=== PATIENT | male | born 1995 | race Caucasian/White ===

== ENCOUNTER 2024-08-01 13:32 | Emergency (ER) | payer OTHER, SELFPAY ==
[2024-08-01 13:33] VITALS: BP 118/70; PULSE 88; RESP 16; TEMP 36.8; O2SAT 100
[2024-08-01 15:25] VITALS: PULSE 83; RESP 16
[2024-08-01] MEDS: IPRATROPIUM 0.5 MG/ALBUTEROL SULFATE 2.5 MG AMPUL.NEB 3 ML INHALATION (15:25)
[2024-08-01] MEDS: LORazepam (*CRX) 1 MG TABLET PO (15:33)
[2024-08-01 16:12] LABS: Basophils Absolute Auto 0.1 K/mm3 (0.0-0.1); Basophils Percent Auto 0.7 % (0.2-1.2); Eosinophils Absolute Auto 0.1 K/mm3 (0-0.3); Hematocrit 44.8 % (42.0-52.0); Hemoglobin 15.5 g/dL (14.0-18.0); Immature Granulocyte Absolute 0.02 K/mm3 (0.00-0.031); Immature Granulocyte Percent A 0.2 % (0-0.5); Lymphocytes Absolute Auto 2.47 K/mm3 (0.9-3.2); Lymphocytes Percent Auto 24.7 % (18.3-44.2); Mean Corpuscular HGB Conc 34.6 g/dl (32-36); Mean Corpuscular Hemoglobin 30.6 pg (26-34); Mean Corpuscular Volume 88.4 fl (80-100); Monocytes Absolute Auto 0.7 K/mm3 (0.1-0.6); Monocytes Percent Auto 7.3 % (2.6-8.5); Neutrophils Absolute Auto 6.6 K/mm3 (1.3-6.7); Neutrophils Percent Auto 66.1 % (45.5-73.1); Platelet Count Result 261 k/mm3 (150-375); Red Blood Count 5.07 M/mm3 (4.6-6.20)
[2024-08-01 16:14] LABS: Add Urine Microscopic? NO; Appearance Urine Clear (Clear); Bilirubin Urine Negative (Negative); Blood Urine Negative (Negative); Color Urine Yellow (Yellow); Glucose Urine UA Negative (Negative); Ketones Urine Negative (Negative); Leukocyte Esterase Ur Negative LEU/UL (Negative); Nitrate Urine Negative (Negative); Protein Urine Negative (Negative); Specific Grav Ur 1.013 (1.001-1.035); Urobilinogen Urine 0.2 mg/dL (<2.0); pH Urine 5.5 (5.0-9.0)
[2024-08-01 16:26] LABS: Ethanol < 10 mg/dL (<10)
[2024-08-01 16:27] LABS: Alanine Aminotransferase 28 U/L (6-50); Albumin Level 4.8 g/dL (3.5-5.1); Alkaline Phosphatase 59 U/L (38-126); Anion Gap 7 mmol/L (4-12); Aspartate Amino Transferase 32 U/L (17-59); Bilirubin,Total 1.7 mg/dL (0.2-1.3); Blood Urea Nitrogen 13 mg/dL (9-20); Calcium 9.3 mg/dL (8.4-10.2); Carbon Dioxide 29 mmol/L (22-30); Chloride 104 mmol/L (98-107); Estimated CRCL calculation 113 ml/min; Estimated Glomerular Filt Rate > 60; Glucose 106 mg/dL (65-110); Potassium 3.7 mmol/L (3.4-5.0); Sodium 140 mmol/L (137-145)
[2024-08-01 16:38] LABS: Amphetamine Screen Urine Negative (Negative); Barbiturate Screen Urine Negative (Negative); Benzodiazepines Screen Urine Negative (Negative); Cannabinoid Screen Urine Positive (Negative); Cocaine Screen Urine Negative (Negative); Methadone Screen Urine Negative (Negative); Opiate Screen Urine Negative (Negative); Phencyclidine Screen Urine Negative (Negative)
[2024-08-01 16:53] LABS: Influenza A QL RT-PCR Negative (Negative); Influenza B QL RT-PCR Negative (Negative); RSV RNA, RT-PCR Negative (Negative); SARS-CoV-2 RNA PCR Negative (Negative)
[2024-08-01 16:57] LABS: Thyroid Stimulating Hormone 0.623 uIU/mL (0.465-4.680)
--- NOTE | 2024-08-01 17:01 | PC.NURSE ---
Pt yelling in his room on 2x occasions. Pt redirected easily. Pt continues to pace in room. MD Vidal notified of pt. behavior.
[2024-08-01 17:07] LABS: HIV 1/2 Ab P24 Ag Result Negative (Negative)
[2024-08-01] MEDS: LORazepam INJ (*CRX) 2 MG/ML VIAL 1 MG IV PUSH (17:14)
--- NOTE | 2024-08-01 17:30 | PC.NURSE ---
Per MD Vidal, pt. is medically cleared and Crisis should be called.
[2024-08-01 17:39] VITALS: PULSE 85; RESP 16; O2SAT 96
--- NOTE | 2024-08-01 17:43 | PC.NURSE ---
Crisis notified by this RN at this time. This RN spoke with Corazon, who states a crisis territory account representative will be sent out.
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
--- NOTE | 2024-08-01 18:47 | PC.NURSE ---
Crisis arrives at [place].
--- NOTE | 2024-08-01 19:23 | PC.NURSE ---
Report received from BRITTANY Fowler. Assumed care of patient at this time. Patient now moved from room 21 to room 9 per Charge nurse request with report given to BRITTANY Edouard. Patient updated and aware of plan. Patient remains no risk on [place]. Patient a/o x4, able to follow directions. Patient given blanket and has call light in room.
[2024-08-01] MEDS: HALOPERIDOL LACTATE 5 MG/ML VIAL IM (20:44)
[2024-08-01] MEDS: LORazepam INJ (*CRX) 2 MG/ML VIAL IM (20:44)
--- NOTE | 2024-08-01 20:56 | PC.NURSE ---
Pt witnessed being ambulatory out of dept through EMS bay. Pt able to be redirected to room. This RN medicated patient per orders, provided pt w warm blanket, water, and turned on TV for pt. Pt educated on use of call light and importance of staying within the ED.
--- NOTE | 2024-08-01 21:22 | PC.NURSE ---
Pt accepted at [facility]. Accepting physician Dr. Calderon. Pt can arrive after 0230 on 08/02/2024. Update on ETA to be called to .
[2024-08-02 06:00] VITALS: BP 135/89; PULSE 103; RESP 20; TEMP 36.1; O2SAT 100
--- NOTE | 2024-08-02 07:14 | PC.NURSE ---
report given to daniel vyas at this time.
--- NOTE | 2024-08-02 08:35 | PC.NURSE ---
Breakfast tray ordered for pt.
--- NOTE | 2024-08-02 09:39 | PC.NURSE ---
Krista called and updated that pt. is leaving [facility]. ETA approximately 4 hours. Pt. updated, signed EMTALA form and verbalized ok with distance to Krista.
[2024-08-02 09:40] VITALS: BP 125/72; PULSE 98; RESP 16; O2SAT 96
--- NOTE | 2024-08-02 09:58 | PC.NURSE ---
Report given to [facility]. All questions answered.
== END 2024-08-02 10:04 ==
PROVIDERS: Emergency Provider Emergency Medicine; PCP Nurse Practitioner
DX: F31.9 Bipolar disorder, unspecified (principal); Z11.52 Encounter for screening for COVID-19; J45.909 Unspecified asthma, uncomplicated
CPT/HCPCS: 36415; 80053; 80307; 81003; 82077; 84443; 85025; 86703; 87637; 94640; 96372; 96374; 99285; A9270; G0432; J1630; J2060

== ENCOUNTER 2025-06-01 23:19 | Emergency (ER) | payer OTHER, SELFPAY ==
--- NOTE | ~2025-06-01 | CT_ITS ---
CT HEAD NON-CONTRAST Clinical History: AMS Comparison: None Technique: Unenhanced axial images skull base to vertex Coronal, sagittal reformats CT images acquired with automatic exposure control for dose reduction DLP: 681 mGy-cm Findings: Sulci, ventricles: Unremarkable. No intracerebral hemorrhage. No evidence acute territorial infarct. No mass effect, midline shift. Bony calvarium intact. Visualized paranasal sinuses: Frontal mucosal thickening, ethmoid fluid. Mastoid air cells: Clear. IMPRESSION: 1. No acute intracranial findings. Reviewed, dictated and finalized at location R.
[2025-06-01 23:28] VITALS: BP 114/72; PULSE 79; RESP 17; O2SAT 98
--- NOTE | 2025-06-01 23:28 | ECG_ITS ---
Test Date: 2025-06-01 23:25:06 Measurements Intervals [place] Rate: 80 P: 56 CO: 184 QRS: 73 QRSD: 103 T: 64 QT: 428 QTc: 496 Interpretive Statements SINUS RHYTHM NONSPECIFIC T-WAVE ABNORMALITY PROLONGED QT INTERVAL ABNORMAL ECG No previous ECG available for comparison Electronically Signed On 06-02-2025 07:40:32 CDT by Lester Morel M.D.
--- NOTE | 2025-06-01 23:52 | ED.AMS ---
HPI - Altered Mental Status General Chief Complaint: Altered Mental Status Stated Complaint: Unresponsive Time Seen by Provider: 06/01/25 23:26 History of Present Illness HPI narrative: This is a 29-year-old male who presents to the ED via EMS for altered mental status. Per EMS, they were called to evaluate the patient who was found in his car with altered mental status. He was given 2 rounds of Narcan with minimal improvement. History is otherwise limited at this time due to patient's altered mental status. Related Data Allergies Allergy/AdvReac Type Severity Reaction Status Date / Time No Known Allergies Allergy Verified 08/01/24 13:36 Review of Systems Review of Systems: ROS unobtainable: Yes unobtainable due to mental status PMFSH Past Medical History Medical History Asthma Bipolar disorder Surgical History Surgical History No pertinent past surgical history Social History Social History Substance use type: unknown Exam Narrative: APPEARANCE: Lying in bed with eye closed EYES: PERRL. HEENT: Normocephalic, atraumatic, OMM RESPIRATORY: No respiratory distress Clear to auscultation bilaterally with no rhonchi wheezing or rales. CARDIOVASCULAR: Regular rate and rhythm without murmurs rubs or gallops. ABDOMINAL: Soft, nontender, nondistended, no rebound or guarding MUSCULOSKELETAl: Moves all extremities. No clubbing, cyanosis or edema. NEURO: Somnolent, awakens to physical touch. Occasionally answers questions occasionally inappropriately. SKIN:: Warm, dry. No rashes lesions or abrasions PSYCHIATRIC: Normal affect/mood, Course Vital Signs Vital signs: Vital Signs Pulse Rate 79 06/01/25 23:28 Respiratory Rate 17 06/01/25 23:28 Blood Pressure 114/72 06/01/25 23:28 Pulse Oximetry 98 06/01/25 23:28 Pulse Rate 52 L 06/02/25 03:16 Respiratory Rate 18 06/02/25 03:16 Blood Pressure 119/64 06/02/25 03:16 Pulse Oximetry 98 06/02/25 03:16 Oxygen Delivery Room Air 06/01/25 23:54 MDM - Altered Mental Status MDM Narrative Medical decision making narrative: 29-year-old male who presents to the ED via EMS for altered mental status. On initial evaluation, patient was somnolent but arousable to physical touch, afebrile, hemodynamically stable. He received 2 doses of Narcan with no improvement of mental status. Upon further questioning, I was able to ascertain the patient had used marijuana and that he had obtained from someone else so he is unsure what may have been in it. UDS was positive for cannabinoids and amphetamines. CBC and CMP without significant abnormalities. UA clear. The patient was monitored and did have return of full mental status. He was able to ambulate through the department. Was able to tolerate solids and liquids. He denied any illicit substance use. He stated that he had apparently taken a sleeping pill from eyes mom that he does recall what it was. Patient's mother is on her way to pick him up. Patient was deemed appropriate for discharge at this time. Advised follow-up with PCP in the next week for re-evaluation. Patient was agreeable to this plan. Given strict return precautions. Differential Diagnosis Differential diagnosis: Likely altered mental status and other (Drug intoxication, electrolyte abnormality, DKA, HHS) Medical Records Attestation: I reviewed the patient's medical records. Lab Data Attestation: I reviewed the patient's lab results. 06/01/25 23:46 06/01/25 23:46 Labs: Lab Results 06/01/25 06/02/25 06/02/25 Range/Units 23:46 00:44 01:12 WBC 8.7 (4.5-10.0) K/mm3 RBC 4.54 L (4.6-6.20) M/mm3 Hgb 13.2 L (14.0-18.0) g/dL Hct 39.2 L (42.0-52.0) % MCV 86.3 (80-100) fl MCH 29.1 (26-34) pg MCHC 33.7 (32-36) g/dl RDW 12.0 (11.5-14.5) % Plt Count 266 (150-375) k/mm3 MPV 9.5 (7.4-10.4) fl Immature Gran % (Auto) 0.2 (0-0.5) % Neut % (Auto) 43.6 L (45.5-73.1) % Lymph % (Auto) 42.3 (18.3-44.2) % [place] % (Auto) 8.0 (2.6-8.5) % Eos % (Auto) 5.3 H (0-4.4) % Baso % (Auto) 0.6 (0.2-1.2) % Lymph # (Auto) 3.67 H (0.9-3.2) K/mm3 [place] # (Auto) 0.7 H (0.1-0.6) K/mm3 Eos # (Auto) 0.5 H (0-0.3) K/mm3 Baso # (Auto) 0.1 (0.0-0.1) K/mm3 Abs Immat Gran (auto) 0.02 (0.00-0.031) K/mm3 Absolute Neuts (auto) 3.8 (1.3-6.7) K/mm3 Absolute Nucleated RBC 0.000 (0.0-0.012) K/mm3 Nucleated RBC % 0.0 (0.0-0.2) % PT 14.4 (11.1-14.7) Seconds INR 1.1 APTT 27.8 (22.3-36.8) Seconds Sodium 137 (137-145) mmol/L Potassium 3.5 (3.4-5.0) mmol/L Chloride 104 (98-107) mmol/L Carbon Dioxide 26 (22-30) mmol/L Anion Gap 7 (4-12) mmol/L BUN 16 (9-20) mg/dL Creatinine 1.21 (0.7-1.3) mg/dL Estim Creat Clear Calc 81 ml/min Estimated GFR > 60 (59 - ) Glucose 112 H (65-110) mg/dL Calcium 8.8 (8.4-10.2) mg/dL Total Bilirubin 1.2 (0.2-1.3) mg/dL AST 54 (17-59) U/L ALT 35 (6-50) U/L Alkaline Phosphatase 51 (38-126) U/L Total Protein 6.9 (6.3-8.2) g/dL Albumin 4.1 (3.5-5.1) g/dL Urine Color Yellow (Yellow) Urine Appearance Clear (Clear) Urine pH 6.5 (5.0-9.0) Ur Specific [place] 1.015 (1.001-1.035) Urine Protein Negative (Negative) mg/dL Urine Glucose (UA) Negative (Negative) mg/dL Urine Ketones Negative (Negative) mg/dL Ur Blood (Man) Negative (Negative) Urine Nitrate Negative (Negative) Urine Bilirubin Negative (Negative) Urine Urobilinogen 1.0 (<2.0) mg/dL Leukocyte Esterase Rfl Negative (Negative) SAV/UL Urine Opiates Screen Negative (Negative) Urine Methadone Screen Negative (Negative) Ur Barbiturates Screen Negative (Negative) Ur Phencyclidine Scrn Negative (Negative) Ur Amphetamine Screen Positive A (Negative) U Benzodiazepines Scrn Negative (Negative) Urine Cocaine Screen Negative (Negative) U Cannabinoids Screen Positive A (Negative) Imaging Data Attestation: I personally reviewed and interpreted this imaging study as follows: (I reviewed the the radiologist's interpretation) Radiologist's impression: CT head: No acute process ECG Data EKG #1: ECG completion date: 06/01/25 ECG completion time: 23:25 Interpretation: Normal sinus rhythm rate of 80, normal axis, prolonged QTc at 496, no acute ST or T-wave changes. No prior to compare Discharge Plan Discharge Clinical Impression: Drug intoxication Qualifiers: Complication of substance-induced condition: uncomplicated Qualified Code(s): F19.920 - Other psychoactive substance use, unspecified with intoxication, uncomplicated Patient Disposition: Home Condition: Stable Instructions: Antibiotic Form Additional Instructions: Please refrain from taking sleeping pills wall your operating a vehicle. Follow-up with your PCP in the next week for re-evaluation. Return to ED for any new or worsening symptoms. Patient Language: Surinamese Follow-up/Referrals: Robert Chandler APRN [Primary Care Provider, Internal Medicine]
--- NOTE | 2025-06-01 23:52 | PC.NURSE ---
Pt is A&Ox2 for this RN. Pt was able to tell me who he is and that he is at a hospital.Pt unaware on time.
[2025-06-01 23:54] VITALS: O2SAT 100
[2025-06-02] VITALS (8 sets, daily range): BP systolic 97–119; BP diastolic 58–68; PULSE 52–70; RESP 16–20; O2SAT 96–100
[2025-06-02 00:08] LABS: Alanine Aminotransferase 35 U/L (6-50); Albumin Level 4.1 g/dL (3.5-5.1); Alkaline Phosphatase 51 U/L (38-126); Anion Gap 7 mmol/L (4-12); Aspartate Amino Transferase 54 U/L (17-59); Bilirubin,Total 1.2 mg/dL (0.2-1.3); Blood Urea Nitrogen 16 mg/dL (9-20); Calcium 8.8 mg/dL (8.4-10.2); Carbon Dioxide 26 mmol/L (22-30); Chloride 104 mmol/L (98-107); Estimated CRCL calculation 81 ml/min; Estimated Glomerular Filt Rate > 60; Glucose 112 mg/dL (65-110); Potassium 3.5 mmol/L (3.4-5.0); Sodium 137 mmol/L (137-145); Total Protein 6.9 g/dL (6.3-8.2)
[2025-06-02 00:18] LABS: Hematocrit 39.2 % (42.0-52.0); Hemoglobin 13.2 g/dL (14.0-18.0); Immature Granulocyte Percent A 0.2 % (0-0.5); Lymphocytes Absolute Auto 3.67 K/mm3 (0.9-3.2); Mean Corpuscular HGB Conc 33.7 g/dl (32-36); Mean Corpuscular Hemoglobin 29.1 pg (26-34); Mean Corpuscular Volume 86.3 fl (80-100); Nucleated Red Blood Cells Absolute Auto 0.000 K/mm3 (0.0-0.012); Nucleated Red Blood Cells Perc 0.0 % (0.0-0.2); Platelet Count Result 266 k/mm3 (150-375); Red Blood Count 4.54 M/mm3 (4.6-6.20); White Blood Count 8.7 K/mm3 (4.5-10.0)
[2025-06-02 00:24] LABS: INR 1.1; Prothrombin Time 14.4 Seconds (11.1-14.7)
[2025-06-02 00:25] LABS: Partial Thromboplastin Time 27.8 Seconds (22.3-36.8)
--- NOTE | 2025-06-02 00:31 | PC.NURSE ---
This Rn went into pt room to ask for urine sample. Pt is unable to stay awake and is disoriented at this time. This Rn attempted to tell pt if he can't urinate for us we might have to do a straight cath. Pt is unable to stay awake/alert. lasting room supervisor and MD both verbalize that we can straight cath pt due to pt not being alert and oriented.
[2025-06-02 00:50] LABS: Add Urine Microscopic? NO; Appearance Urine Clear (Clear); Glucose Urine UA Negative (Negative); Leukocyte Esterase Ur Negative LEU/UL (Negative); Nitrate Urine Negative (Negative); Specific Grav Ur 1.015 (1.001-1.035)
--- NOTE | 2025-06-02 01:03 | PC.NURSE ---
Pt repositioned, fall alarm placed under pt, and blanet given.
[2025-06-02 01:39] LABS: Cannabinoid Screen Urine Positive (Negative)
== END 2025-06-02 04:21 | disposition home or self-care (01) ==
PROVIDERS: Emergency Provider Student in an Organized Health Care Education/Training Program; PCP Nurse Practitioner
DX: F13.120 Sedative, hypnotic or anxiolytic abuse with intoxication, uncomplicated (principal); J45.909 Unspecified asthma, uncomplicated; R94.31 Abnormal electrocardiogram [ECG] [EKG]
CPT/HCPCS: 36415; 70450; 80053; 80307; 81003; 85025; 85610; 85730; 93005; 99284